=== PATIENT | male | born 1995 | race Hispanic/Latino ===

== ENCOUNTER 2023-12-18 18:49 | Emergency (ER) | payer SELFPAY ==
[2023-12-18] MEDS ORDERED: Naproxen 500 MG TAB ONE (20:16)
== END 2023-12-18 20:25 | disposition home or self-care (01) ==
LOC: NAV ERS 18:49
DX: S93.412A Sprain of calcaneofibular ligament of left ankle, initial encounter (principal); X50.1XXA Overexertion from prolonged static or awkward postures, initial encounter